=== PATIENT | female | born 1960 | race Caucasian/White ===

== ENCOUNTER 2018-07-27 09:32 | Outpatient (CLI) | payer BC ==
--- NOTE | 2018-07-27 10:50 | BD ---
DEXA BONE DENSITY STUDY: Comparison: None. History: 58-year-old post-menopausal female for screening. Lumbar Spine: BMD (g/cm2) L1 1.010 T-Score: 0.2 L2 1.103 T-Score: 0.7 L3 1.123 T-Score: 0.4 L4 1.037 T-Score: -0.2 L1-L4 1.066 T-Score: 0.2 Femoral Neck: 0.768 T-Score: -0.7 Total Femur: 0.893 T-Score: -0.4 Impression: Normal bone mineral density. POS: [facility]
== END 2018-07-27 09:33 | disposition home or self-care (01) ==
LOC: BICMAMMO 09:32
PROVIDERS: ATTEND Internal Medicine Rheumatology
DX: M81.0 Age-related osteoporosis without current pathological fracture (principal)
CPT/HCPCS: 77080